=== PATIENT | female | born 1990 | race Caucasian/White ===

== ENCOUNTER 2017-11-09 20:44 | Emergency (ER) | payer MEDICAID ==
[2017-11-09] MEDS ORDERED: HYDROmorphone 2 MG/ML SDV IM ONE (21:00)
[2017-11-09] MEDS ORDERED: Ondansetron 4 MG Tab.DIS PO SCH (21:15)
--- NOTE | 2017-11-10 00:04 | EDM.PDOC ---
ED HPI GENERAL MEDICAL PROBLEM - General Stated Complaint: BACK PAIN Time Seen by Provider: 11/09/17 20:50 Source of Information: Reports: Patient History Limitations: Reports: No Limitations - History of Present Illness INITIAL COMMENTS - FREE TEXT/NARRATIVE: Sports and 240 pound woman thinned lower at 2:30 PM 2 pickup something on the floor and she had sudden onset of pain. She is a 3 para 2/02/12. And has severe pain he denies alcohol or smoking or drug use or abuse. No history of previous back pain she notes she can walk with pain. At has pain with sitting. Onset: Today Onset Date: 11/10/17 Onset Time: 14:30 Location: Reports: Back Quality: Reports: Sharp Severity: Severe Improves with: Reports: None Worsens with: Reports: None Context: Reports: Activity Associated Symptoms: Reports: No Other Symptoms Treatments IGNITER CAPPER: Reports: Acetaminophen - Related Data Home Meds: Home Meds Hydrocodone/Acetaminophen [Lorcet 5-325 mg Tablet] 1 each PO Q4HR PRN #10 tablet 11/09/17 [Rx] Methocarbamol [Robaxin-750] 750 mg PO QID PRN #60 tablet 11/09/17 [Rx] ED ROS GENERAL - Review of Systems Review Of Systems: See Below Constitutional: Reports: No Symptoms HEENT: Reports: No Symptoms Respiratory: Reports: No Symptoms Cardiovascular: Reports: No Symptoms Endocrine: Reports: No Symptoms GI/Abdominal: Reports: Other (Obesity 240 pounds) : Reports: No Symptoms Musculoskeletal: Reports: Back Pain Skin: Reports: No Symptoms Neurological: Reports: No Symptoms Psychiatric: Reports: No Symptoms Hematologic/Lymphatic: Reports: No Symptoms Immunologic: Reports: No Symptoms ED EXAM, GENERAL - Physical Exam Exam: See Below Exam Limited By: No Limitations General Appearance: Alert, Severe Distress Eye Exam: Bilateral Eye: Normal Inspection Ears: Normal External Exam, Normal Canal, Hearing Grossly Normal Ear Exam: Bilateral Ear: Auricle Normal, Canal Normal, TM normal Nose: Normal Inspection Throat/Mouth: Normal Inspection, Normal Lips, Normal Teeth, Normal Gums, Normal Oropharynx, Normal Voice Head: Atraumatic, Normocephalic Neck: Normal Inspection, Supple, Non-Tender Respiratory/Chest: No Respiratory Distress, Lungs Clear, Normal Breath Sounds, No Accessory Muscle Use, Chest Non-Tender Cardiovascular: Normal Peripheral Pulses, Regular Rate, Rhythm, No Edema, No Gallop, No JVD, No Murmur, No Rub Peripheral Pulses: 1+: Radial (L), Radial (R) GI/Abdominal: Normal Bowel Sounds, Soft, Non-Tender, No Organomegaly, No Distention (Female) Exam: Deferred Rectal (Female) Exam: Deferred Back Exam: Normal Inspection, Muscle Spasm, Paraspinal Tenderness, Other ( spinous process tenderness noted in the region with extensive her spinal muscle. Lumbar region. Straight leg raise and left a severe amount 30 right at 45 no dysesthesia or sensory changes left or right legs. Deep tendon reflexes absent lower extremities. Sensation is normal lower extremities. She has difficulty getting up but she can walk.) Neurological: Alert, Oriented, CN II-XII Intact, Normal Cognition, Normal Gait, No Motor/Sensory Deficits Psychiatric: Normal Affect, Other (She is fearful because she has moderate back pain) Skin Exam: Warm, Dry, Intact, Normal Color, No Rash Lymphatic: No Adenopathy Course - Orders/Labs/Meds Orders: Active Orders 24 hr Category Date Time Status Ondansetron [Zofran ODT] Med 11/09/17 21:15 Active 4 mg PO ONETIME Medication Orders Ondansetron HCl (Zofran Odt) 4 mg PO ONETIME [place] Last Admin: 11/09/17 21:10 Dose: 4 mg Meds: Medications Generic Name Dose Route Start Last Admin Trade Name Freq PRN Reason Stop Dose Admin Ondansetron HCl 4 mg 11/09/17 21:15 11/09/17 21:10 Zofran Odt PO 4 mg ONETIME [place] Administration Discontinued Medications Generic Name Dose Route Start Last Admin Trade Name Freq PRN Reason Stop Dose Admin Hydromorphone HCl 1 mg 11/09/17 21:00 11/09/17 21:10 Dilaudid IM 11/09/17 21:01 1 mg ONETIME ONE Administration Departure - Departure Time of Disposition: 21:30 Disposition: Home, Self-Care 01 Clinical Impression: Morbid obesity with BMI of 50.0-59.9, adult Low back pain Qualifiers: Chronicity: acute Back pain laterality: bilateral Sciatica presence: without sciatica Qualified Code(s): M54.5 - Low back pain - Discharge Information *PRESCRIPTION DRUG MONITORING PROGRAM REVIEWED*: Not Applicable *COPY OF PRESCRIPTION DRUG MONITORING REPORT IN PATIENT PATRIZIA: Not Applicable Prescriptions: Hydrocodone/Acetaminophen [Lorcet 5-325 mg Tablet] 1 each PO Q4HR PRN #10 tablet PRN Reason: Pain Methocarbamol [Robaxin-750] 750 mg PO QID PRN #60 tablet PRN Reason: Spasms Instructions: Back Pain, Adult Referrals: Keyanna Hennessy DISCOVERY MANAGER [Primary Care Provider] - Additional Instructions: USE TYLENOL 1000 MG TOGETHER WITH IBUPROFEN 600 MG EVERY 6 HOURS FRO BREAKTHROUGH PAIN YO HAVE HYDROCODONE 5/325 10 TAB - SO USE THEM SPARINGLY Follow-up with her doctor in 1 week earlier if worse - My Orders Last 24 Hours: My Active Orders 11/09/17 21:15 Ondansetron [Zofran ODT] 4 mg PO ONETIME - Assessment/Plan Last 24 Hours: My Active Orders 11/09/17 21:15 Ondansetron [Zofran ODT] 4 mg PO ONETIME
== END 2017-11-09 21:30 | disposition home or self-care (01) ==
LOC: FB.ED 20:44
DX: M54.5 Low back pain (principal); E66.01 Morbid (severe) obesity due to excess calories; Z68.43 Body mass index [BMI] 50.0-59.9, adult
CPT/HCPCS: 96372; 99282; A9270-GY; J1170